=== PATIENT | female | born 1975 | race Caucasian/White ===

== ENCOUNTER 2018-02-13 23:15 | Emergency (ER) | payer OTHER ==
[~2018-02-13] VITALS: Ht 167.6 cm; Wt 86.2 kg
--- NOTE | 2018-02-13 23:30 | NUR ---
PT TO ER BED 13. BIBRA 87 FOR +SI - HI PLANS TO CUT WRIST WITH RAZOR. 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 VSS/RESP EVEN UNLABORED/NAD NOTED/SKIN WARM AND DRY/AFEBRILE/DENIES N-V-D/AOX4. AWAITNG MD RAMÍREZ. SUICIDE PRECAUTIONS IN PLACE.
--- NOTE | 2018-02-13 23:42 | NUR ---
URINE SPECIMEN OBTAINED AND SENT TO THE LAB.
[2018-02-14] MEDS ORDERED: OLANZAPINE 10 MG VIAL IM ONE ×2 (00:40→01:00)
[2018-02-14 00:50] LABS: APPEARANCE,URINE CLEAR (CLEAR); BILIRUBIN,URINE 2+ (NEGATIVE); BLOOD, URINE 2+ Ery/uL (NEGATIVE); COLOR,URINE YELLOW (YELLOW); KETONES,URINE 2+ (NEGATIVE); LEUKOCYTE ESTERASE ,URINE NEGATIVE (NEGATIVE); NITRITE, URINE NEGATIVE (NEGATIVE); PROTEIN,URINE TRACE mg/dl (NEGATIVE); UGLUCOSE NEGATIVE (NEGATIVE)
--- NOTE | 2018-02-14 01:01 | NUR ---
LAB AT BEDSIDE FOR DRAW.
[2018-02-14 01:21] LABS: BASOPHILS % (AUTO) 0.3 % (0.0-2.0); HEMATOCRIT 42 % (33-45); HEMOGLOBIN 13.2 g/dL (11.5-14.8); LYMPHOCYTES # (AUTO) 3.1 /CMM (0.8-4.8); LYMPHOCYTES % (AUTO) 30.1 % (20.0-44.0); MEAN CORPUSCULAR HEMOGLOBIN 27 PG (26.0-33.0); MEAN CORPUSCULAR HGB CONC 31 g/dl (31.0-36.0); MEAN CORPUSCULAR VOLUME 88 fL (82-100); MONOCYTES # (AUTO) 0.7 /CMM (0.1-1.30); MONOCYTES % (AUTO) 6.4 % (2.0-12.0); NEUTROPHILS # (AUTO) 6.5 /CMM (1.8-8.9); NEUTROPHILS % (AUTO) 63.2 % (43.0-81.0); PLATELET COUNT (AUTO) 316 /CMM (150-450); RDW COEFFICIENT OF VARIATION 14.1 (11.5-15.0); WHITE BLOOD COUNT (AUTO) 10.2 K/uL (4.3-11.0)
[2018-02-14 01:24] LABS: BACTERIA,URINE None seen /HPF (None Seen); SQUAMOUS EPITHELIAL CELL,UR Few /HPF (None Seen); WBC,URINE 0-2 /HPF (0-3)
[2018-02-14 01:38] LABS: CALCIUM, SERUM 9.4 mg/dL (8.5-10.1); CARBON DIOXIDE 22 mmol/L (21-32); CHLORIDE 99 mmol/L (98-107); CREATININE 0.8 mg/dL (0.6-1.3); GLUCOSE 73 mg/dL (74-106); POTASSIUM 3.1 mmol/L (3.5-5.1); SODIUM SERUM 137 mmol/L (136-145); UREA NITROGEN, BLOOD 19 mg/dL (7-18)
[2018-02-14 01:49] LABS: ALANINE AMINOTRANSFERASE 38 U/L (12-78); ALBUMIN 4.1 g/dL (3.4-5.0); ALCOHOL, BLOOD < 3 mg/dL (0-0); ALKALINE PHOSPHATASE 95 U/L (46-116); ASPARTATE AMINOTRANSFERASE 32 U/L (15-37); BILIRUBIN,DIRECT 0.2 mg/dL (0.0-0.2); BILIRUBIN,TOTAL 0.8 mg/dL (0.2-1.0); TOTAL PROTEIN, SERUM 7.5 g/dL (6.4-8.2)
[2018-02-14 01:50] LABS: ACETAMINOPHEN 0 ug/ml (10-30); SALICYLATE 2.4 mg/dL (2.8-20.0)
[2018-02-14] MEDS ORDERED: LORAZEPAM INJ 2 MG/ML VIAL ONE (02:24)
[2018-02-14] MEDS ORDERED: LORAZEPAM INJ 2 MG/ML VIAL IV ONE (02:30)
--- NOTE | 2018-02-14 03:00 | NUR ---
patient began to scream, MD placed order for 2mg ativan. pulled ativan, went to give medication as ordered, while at bed side patient was screaming for a blanket. Gave patient blanket, patient calmed down. patient no longer needed medication for sedation, wasted 2mg ativan with NIRMALA Amato
--- NOTE | 2018-02-14 03:09 | NUR ---
PT RESTING QUIETLY, AROUSES EASILY TO VOICE. VSS/RESP EVEN UNLABORED. RN TO CONTINUE MONITORING PROVIDING PT WITH SAFETY/COMFORT MEASURES.
--- NOTE | 2018-02-14 03:11 | NUR ---
NIRMALA PEACOCK AT BEDSIDE FOR PSYC EVAL.
--- NOTE | 2018-02-14 06:56 | NUR ---
NO CHANGES. PT RESTING QUIETLY, AROUSES EASILY TO VOICE. VSS/RESP EVEN UNLABORED. RN TO CONTINUE MONITORING PROVIDING PT WITH SAFETY/COMFORT MEASURES.
--- NOTE | 2018-02-14 07:17 | NUR ---
REPORT GIVEN TO NIRMALA FORRESTER FOR JUANITO.
--- NOTE | 2018-02-14 08:11 | NUR ---
PT SLEEPING SOUNDLY RESP EVEN UNLABORED VSS
--- NOTE | 2018-02-14 12:00 | NUR ---
pt eatting lunch asking about placement . vss shakira still pending place AWAITING EVALUATION BY ER PROVIDER.
--- NOTE | 2018-02-14 15:30 | NUR ---
pt amb outside to smoke vss
--- NOTE | 2018-02-14 15:49 | NUR ---
CALLED MADONNA TO COME BACK AND SPEAK WITH PATIENT IN REGARDS TO PLACEMENT STATUS - ETA 30 MIN
--- NOTE | 2018-02-14 16:07 | NUR ---
PT WALKING AROUND ER TOLD TO GO TO BED VSS ,
--- NOTE | 2018-02-14 16:38 | NUR ---
polly came back to reeval pt . pt stated we threw away her clothes then said pt threw them away , given addresses to foklow up with . pt stable not showing signs of wanting to hurt herself . said thank you for the clothes and left
[2018-02-14 16:40] VITALS: BP 133/74
== END 2018-02-14 16:42 | disposition home or self-care (01) ==
LOC: ER 23:15
DX: F20.9 Schizophrenia, unspecified (principal); R45.851 Suicidal ideations; J45.909 Unspecified asthma, uncomplicated; F32.9 Major depressive disorder, single episode, unspecified; Z88.0 Allergy status to penicillin
CPT/HCPCS: 36415; 80048; 80076; 80305; 80329; 81001; 84703; 85025; 96372; 99284; A4606; G0480 ×2; J3490; Z7610; 81000-TC; J2060

== ENCOUNTER 2018-06-25 12:33 | Inpatient (IN) | END 2018-06-27 17:45 | DRG 862 | DX: T76.21XD Adult sexual abuse, suspected, subsequent encounter (principal); E87.2 Acidosis; E46 Unspecified protein-calorie malnutrition; F33.3 Major depressive disorder, recurrent, severe with psychotic symptoms; R45.851 Suicidal ideations; E87.1 Hypo-osmolality and hyponatremia; D64.9 Anemia, unspecified; S02.2XXA Fracture of nasal bones, initial encounter for closed fracture; E86.1 Hypovolemia; D72.829 Elevated white blood cell count, unspecified; F15.10 Other stimulant abuse, uncomplicated; F17.210 Nicotine dependence, cigarettes, uncomplicated; J45.909 Unspecified asthma, uncomplicated; Z22.322 Carrier or suspected carrier of Methicillin resistant Staphylococcus aureus; Z59.0 Homelessness; S33.9XXD Sprain of unspecified parts of lumbar spine and pelvis, subsequent encounter ==